=== PATIENT | female | born 1975 | race Caucasian/White ===

== ENCOUNTER → 2016-12-11 | Outpatient (CLI) | payer BC ==
--- NOTE | 2016-12-11 16:48 | CT ---
EXAMINATION TYPE: CT sinus wo con DATE OF EXAM: 12/11/2016 1:29 PM COMPARISON: NONE HISTORY: Patient complains of chronic sinus congestion and deviated septum. CT DLP: 606 mGycm CONTRAST: None The paranasal sinuses are examined in the axial plane at 2 mm thick sections. Reconstructed images i n the coronal plane were obtained. There is a retention cyst within the anterior inferior left maxillary sinus. A medial small anterior right maxillary sinus retention cyst is present. There is opacification of the anterior right ethmoi d air cell. Remaining ethmoid air cells are clear. The sphenoid sinuses are clear. The frontal sinu ses are clear. The septum is evaluated. There is septal deviation to the left. The ostiomeatal units are patent. IMPRESSIONS: 1. Retention cysts within the maxillary sinuses. 2. Left septal deviation.
== END ==
LOC: RADCTMAIN 12:48
PROVIDERS: ATTEND Otolaryngology
DX: J34.1 Cyst and mucocele of nose and nasal sinus (principal); J34.2 Deviated nasal septum
CPT/HCPCS: 70486

== ENCOUNTER 2017-01-20 08:03 | Day surgery (SDC) | payer BC ==
[2017-01-20] MEDS: OXYMETAZOLINE 0.05% NASL SPRAY 15 ML NASAL SCH ×5 (09:10→09:30)
[2017-01-20] MEDS ORDERED: ONDANSETRON 4 MG/2 ML VIAL IVP ONE ×2 (09:15→12:25)
[2017-01-20] MEDS ORDERED: DEXAMETHASONE SOD PHOSPHATE 10 MG/ML 1 ML VIAL IV ONE ×2 (09:15→12:25)
[2017-01-20] MEDS ORDERED: Pre Op ABX Message 1 EACH MISC MISCELLANE ONE (09:30)
[2017-01-20] MEDS ORDERED: LIDOCAINE 1% 20 ML VIAL (10MG/ML) FOR IV START INTRADERMA ONE (09:34)
[2017-01-20] MEDS ORDERED: LACTATED RINGERS 1,000 ML IV ONE (09:35)
[2017-01-20] MEDS ORDERED: FAMOTIDINE 20 MG/2 ML VIAL IV ONE (09:37)
[2017-01-20] MEDS ORDERED: SCOPOLAMINE 1.5MG/72HR PATCH TRANSDERM ONE ×2 (09:41→12:25)
[2017-01-20] MEDS ORDERED: LIDOCAINE 1%-EPI 1:100,000 20 ML VIAL SUBMUCOSAL ONE ×2 (09:59)
[2017-01-20] MEDS ORDERED: BACITRACIN 500 UNIT/GM OINT 28.4 GM TUBE TOPICAL ONE (10:00)
[2017-01-20] MEDS ORDERED: SUCCINYLCHOLINE CHLORIDE 100 MG/5 ML SYR IV ONE (10:02)
[2017-01-20] MEDS ORDERED: MIDAZOLAM 2 MG/2 ML VIAL ONE (10:02)
[2017-01-20] MEDS ORDERED: fentaNYL (PF) 50 MCG/ML 2 ML AMP ONE (10:02)
[2017-01-20] MEDS ORDERED: PROPOFOL 10 MG/ML 20 ML VIAL IV ONE (10:02)
[2017-01-20] MEDS ORDERED: LIDOCAINE 1% INJ 10MG/ML (20 ML MDV) ONE (10:02)
[2017-01-20] MEDS ORDERED: ePHEDrine 50 MG/ML 1 ML AMP ONE (10:02)
[2017-01-20] MEDS ORDERED: DEXAMETHASONE SOD PHOS (MDV) 100 MG/10 ML VIAL ONE (10:02)
--- NOTE | 2017-01-20 11:02 | P.OP ---
Date of Procedure: 01/20/17 Preoperative Diagnosis: Deviated nasal septum Inferior turbinate hypertrophy Chronic sinusitis Postoperative Diagnosis: Same Procedure(s) Performed: Septoplasty Outfracture and submucous resection of the inferior turbinates Bilateral endoscopic sinus surgery including bile max antrostomy with removal of tissue from the maxillary sinuses and right anterior ethmoidectomy Anesthesia: NATHAN Surgeon: Jairo Damian Estimated Blood Loss (ml): 20 Pathology: other (Nasal septal bone and cartilage and sinus contents) Condition: stable Disposition: PACU Indications for Procedure: Is a 41-year-old white female with chronic nasal airway obstruction congestion and recurrent sinus infections with computed tomography scan showing abnormalities in the maxillary sinuses and right anterior ethmoid sinus Operative Findings: Nasal septal deviation to the right, inferior turbinate hypertrophy, obstruction of ostial complexes bilaterally with small cysts in the maxillary sinuses and mild mucosal thickening in the right anterior ethmoid air cells Description of Procedure: Patient was brought in the operative suite and placed in a supine position. The patient underwent induction of general anesthesia with oral endotracheal intubation without difficulty. Patient prepped and draped in usual aseptic fashion. Orbits were in the operating field for monitoring throughout the case and computed tomography scan was on the screen for review throughout the case. 1% lidocaine with 1 100,000 epinephrine was infused submucosally both sides nasal septum as well as lateral nasal wall and anterior tips of middle turbinates bilaterally. While this was taking vasoconstrictive effect the inferior turbinates were infractured with the Crosby elevator partial submucous resection inferior turbinates was performed with Coblation of a portion of the submucosal soft tissue with the Coblator and then outfractured with Crosby elevator. A left hemitransfixion incision was made with the mucoperichondrial mucoperiosteal flap on the left elevated. Bony cartilaginous junction was disarticulated and the mucoperiosteal flap on the right was elevated. Bony nasal septal deformities were removed with Ankita forceps. An inferior cartilaginous strip was removed leaving a full 1.5 cm caudal strut. Checking intranasally this corrected the nasoseptal deformities and the hemitransfixion incision was closed running 4-0 chromic suture. Full 0 endoscopic examination was performed bilaterally. Beginning on the left middle turbinate was medialized with the Stuart elevator. Next ostium was located with a ballpoint probe and infundibulotomy was followed by uncinectomy. Maxillary ostium was enlarged at the expense of the in and posterior fontanelle. Anteriorly not to injure the lacrimal bone. A cyst was removed from the maxillary sinus using giraffe forceps. Attention was then turned to the right where the procedures were followed as they were on the left was medialization middle turbinate infundibulotomy uncinectomy and maxillary antrostomy with removal of a cyst from the maxillary sinus. Anterior ethmoidectomy also performed on the right due to the computed tomography scan abnormalities. Once this was completed xerogel was placed in the middle meatus bilaterally and moistened with saline. Bilateral Son airway splints coated bacitracin ointment were placed in nasal cavities and sutured trans-septally with a 4-0 Vicryl suture. Patient was suctioned in oral gastric fashion. Patient was allowed to emerge from general anesthesia and tolerated procedure well was extended operative suite and transferred postoperative recovery area in satisfactory condition.
[2017-01-20 11:14] VITALS: RESP 16; TEMP 97
[2017-01-20] MEDS ORDERED: fentaNYL (PF) 50 MCG/ML 2 ML AMP IV ONE (11:49)
[2017-01-20] MEDS ORDERED: ACETAMINOPHEN IV (For NPO) 1,000 MG/100 ML VIAL IVPB ONE (11:56)
[2017-01-20] MEDS ORDERED: HYDROmorphone 1 MG/ML 1 ML SYRINGE IVP PRN (12:25)
[2017-01-20] MEDS ORDERED: LIDOCAINE 1% 20 ML VIAL (10MG/ML) FOR IV START INTRADERMA PRN (12:25)
[2017-01-20] MEDS ORDERED: LACTATED RINGERS 1,000 ML IV SCH (12:25)
[2017-01-20] MEDS ORDERED: MIDAZOLAM 2 MG/2 ML VIAL IV PRN (12:25)
[2017-01-20] MEDS ORDERED: ACETAMINOPHEN TAB 500 MG TAB PO ONE (14:00)
[2017-01-20 14:09] VITALS: PULSE 70
[2017-01-20 14:48] VITALS: BP 130/64
== END 2017-01-20 15:49 | disposition home or self-care (01) ==
LOC: OR 08:03
PROVIDERS: ATTEND Otolaryngology
DX: J34.2 Deviated nasal septum (principal); J34.3 Hypertrophy of nasal turbinates; J32.9 Chronic sinusitis, unspecified; J34.1 Cyst and mucocele of nose and nasal sinus; J45.909 Unspecified asthma, uncomplicated; E07.9 Disorder of thyroid, unspecified; Z88.0 Allergy status to penicillin; Z88.2 Allergy status to sulfonamides; Z88.8 Allergy status to other drugs, medicaments and biological substances; Z91.040 Latex allergy status; Z79.899 Other long term (current) drug therapy
CPT/HCPCS: 88305; 88300; 30520; 30140; 31254; J2250; J2405; J2001; J3010; J1100; J0131; J0330; J2704

== ENCOUNTER 2017-11-22 18:12 | Observation (INO) | payer BC ==
[2017-11-22] MEDS ORDERED: KETOROLAC 30 MG/ML 1 ML VIAL IVP STA (18:46)
[2017-11-22] MEDS ORDERED: NITROGLYCERIN OINT 1 INCH/GM PACKET TOPICAL STA (18:46)
[2017-11-22] MEDS ORDERED: ASPIRIN 81 MG PO STA (18:46)
--- NOTE | 2017-11-22 18:53 | ED ---
Chest Pain HPI - General Chief Complaint: Chest Pain Stated Complaint: chest pain Time Seen by Provider: 11/22/17 18:40 Source: patient Mode of arrival: wheelchair Limitations: no limitations - History of Present Illness Initial Comments: This 42-year-old white female presents with a complaint of some left-sided sharp chest pain. She states it also feels like a pressure at times. This occurred while she was standing in the kitchen tonight. It seems to be worse with any deep inspiration and with certain movements. She denies any significant shortness of breath. She denies any previous similar incidents. She denies any leg pain but will have occasional chronic swelling but none currently. She denies any history of DVT or PE. She states that she has had a fast heart rate in the past and used to be on Tenormin for this but she denies any other Cardiologic problems in the past. There's been no previous coronary artery disease or myocardial infarction. She apparently had a stress test approximately 7 years ago which was purportedly negative. She states that it is much improved at this time. She denies any injuries. No other complaints or modifying factors. - Related Data Home Medications Medication Instructions Recorded Confirmed Albuterol Inhaler [Ventolin Hfa 2 puff INHALATION RT-Q6H PRN 01/20/17 11/22/17 Inhaler] Multivitamin [Multivitamins Adult 1 tab PO DAILY 01/20/17 11/22/17 Gummies] Allergies Allergy/AdvReac Type Severity Reaction Status Date / Time acetaminophen Allergy Rash/Hives Verified 11/22/17 19:24 [From Darvocet-N] adhesive Allergy Itching Verified 11/22/17 19:24 Latex, Natural Rubber Allergy Rash/Hives Verified 11/22/17 19:24 Penicillins Allergy Unknown Verified 11/22/17 19:24 Childhood propoxyphene Allergy Rash/Hives Verified 11/22/17 19:24 [From Darvocet-N] Sulfa (Sulfonamide Allergy Unknown Verified 11/22/17 19:24 Antibiotics) Childhood banana AdvReac Itching Verified 11/22/17 19:24 corn AdvReac Itching Verified 11/22/17 19:24 milk AdvReac Itching Verified 11/22/17 19:24 peas AdvReac Itching Verified 11/22/17 19:24 wheat AdvReac Itching Verified 11/22/17 19:24 FLUORQUINOLONES Allergy Rash/Hives Uncoded 11/22/17 18:30 NARCOTICS Allergy Nausea & Uncoded 11/22/17 18:30 Vomiting Review of Systems ROS Statement: Those systems with pertinent positive or pertinent negative responses have been documented in the HPI. ROS Other: All systems not noted in ROS Statement are negative. Past Medical History Past Medical History: Asthma Additional Past Medical History / Comment(s): IRRITABLE BOWEL, TMJ History of Any Multi-Drug Resistant Organisms: None Reported Past Surgical History: Adenoidectomy, Ear Surgery, Hysterectomy, Orthopedic Surgery, Tonsillectomy, Uterine Ablation Additional Past Surgical History / Comment(s): TUBES IN EARS CHILD, , ABDOMINAL REPAIR, HIP SURGERY, RIGHT SHOULDER SURGERY, LASIK SURGERY, DISCS IN NECK, right knee Past Anesthesia/Blood Transfusion Reactions: Previous Problems w/ Anesthesia, Motion Sickness, Postoperative Nausea & Vomiting (PONV) Past Psychological History: No Psychological Hx Reported Smoking Status: Never smoker Past Alcohol Use History: Occasional Past Drug Use History: None Reported - Past Family History Father Family Medical History: Hypertension Additional Family Medical History / Comment(s): PITUITARY TUMOR Mother Family Medical History: Diabetes Mellitus General Exam - General Exam Comments Initial Comments: GENERAL: The patient is well nourished and well hydrated. VITAL SIGNS: Heart rate, blood pressure, respiratory rate reviewed as recorded in nurse's notes. EYES: Pupils are round and reactive. Extraocular movements are intact. No conjunctival / lid redness or swelling. ENT: No external evidence of injury, swelling, or ecchymosis. Airway is patent. Throat is clear. NECK: Nontender. No swelling or evidence of injury. No subcutaneous emphysema. Trachea is midline. No thyroid mass. HEART: Regular rate and rhythm. Good peripheral pulses. LUNGS/CHEST: Breath sounds clear and equal bilaterally. No rales, rhonchi, or wheezes. No ecchymosis, subcutaneous emphysema, or tenderness. ABDOMEN: Abdomen soft without tenderness. No palpable masses or organomegaly. No peritoneal signs. No abdominal wall swelling or ecchymosis. EXTREMITIES: No extremity tenderness. Normal muscle tone and function. No thoracolumbar tenderness. No leg swelling noted. NEUROLOGIC: Sensation is grossly intact. Cranial nerve exam reveals face is symmetrical, tongue is midline, speech is clear. SKIN: No abrasions or ecchymosis is noted. No induration or masses noted. PSYCHIATRIC: Alert and oriented. Appropriate behavior and judgment. Limitations: no limitations Course Vital Signs 11/22/17 11/22/17 11/22/17 18:27 19:27 20:47 Temperature 99.2 F Pulse Rate 87 73 81 Respiratory 18 16 16 Rate Blood Pressure 101/61 109/64 100/65 O2 Sat by Pulse 100 99 99 Oximetry Chest Pain MDM - MDM The patient is seen and examined. All diagnostics are reviewed. An IV is established. She receives some aspirin as well as Nitropaste and some Toradol. The EKG shows a normal sinus rhythm at a rate of 86. There is no acute ST-T wave changes identified. The [place] intervals 150, QRS duration is 90, and the QTc intervals 449. The laboratories unremarkable except for the d-dimer is elevated. The chest x-ray did not show any acute processes. The CT angiogram of the thorax did not show any evidence of pulmonary embolism. The exact cause of her symptoms are not definitively determined. The possibility acute coronary syndrome still is possible. She is agreeable for admission. The case is discussed with Dr. Arvizu and he is agreeable for observation as well. Disposition Clinical Impression: Chest pain, Unstable angina pectoris Disposition: ADMITTED IP TO THIS HOSP Condition: Fair Referrals: Mague Correa MD [Primary Care Provider] - 1-2 days Time of Disposition: 21:37
[2017-11-22 19:10] LABS: Basophils # (A) 0.1 k/uL (0-0.2); Basophils % (A) 1 %; Eosinophils # (A) 0.2 k/uL (0-0.7); Eosinophils % (A) 2 %; HCT 43.9 % (34.0-46.0); HGB 14.3 gm/dL (11.4-16.0); Lymphocytes # (A) 2.6 k/uL (1.0-4.8); Lymphocytes % (A) 25 %; MCH 27.9 pg (25.0-35.0); MCHC 32.5 g/dL (31.0-37.0); MCV 85.8 fL (80.0-100.0); Monocytes # (A) 0.4 k/uL (0-1.0); Monocytes % (A) 4 %; Neutrophils # (A) 6.9 k/uL (1.3-7.7); Neutrophils % (A) 67 %; Platelet Count 210 k/uL (150-450); RBC 5.12 m/uL (3.80-5.40); WBC 10.2 k/uL (3.8-10.6)
[2017-11-22 19:20] LABS: ALT 26 U/L (9-52); AST 24 U/L (14-36); Albumin 4.7 g/dL (3.5-5.0); Alkaline Phosphatase 89 U/L (38-126); Anion Gap 13 mmol/L; Blood Urea Nitrogen 16 mg/dL (7-17); Calcium 9.8 mg/dL (8.4-10.2); Carbon Dioxide 26 mmol/L (22-30); Chloride 104 mmol/L (98-107); Glucose 96 mg/dL (74-99); Magnesium 1.9 mg/dL (1.6-2.3); Potassium 4.1 mmol/L (3.5-5.1); Sodium 143 mmol/L (137-145); Total Bilirubin 0.3 mg/dL (0.2-1.3)
[2017-11-22 19:27] LABS: D-Dimer 0.99 mg/L FEU (<0.60); Partial Thromboplastin Time 25.8 sec (22.0-30.0); Prothrombin Time 9.9 sec (9.0-12.0)
[2017-11-22 19:32] VITALS: RESP 16
--- NOTE | 2017-11-22 19:40 | XR ---
EXAMINATION TYPE: XR chest 2V DATE OF EXAM: 11/22/2017 COMPARISON: 01/26/2014 HISTORY: Chest pain TECHNIQUE: Frontal and lateral views of the chest are obtained. FINDINGS: Heart and mediastinum are normal. Lungs are clear. Diaphragm is normal. Bony thorax appear s normal. IMPRESSION: Normal chest. No change.
[2017-11-22 19:46] LABS: Creatine Kinase 128 U/L (30-135)
[2017-11-22] MEDS ORDERED: RX INFO: IV CONTRAST WAS GIVEN 1 EACH MISC MISCELLANE PRN (19:56)
[2017-11-22 19:59] LABS: Troponin I <0.012 ng/mL (0.000-0.034)
--- NOTE | 2017-11-22 20:50 | CT ---
EXAMINATION TYPE: CT angio chest DATE OF EXAM: 11/22/2017 8:28 PM COMPARISON: NONE HISTORY: Mid chest pain. CT DLP: 621 mGycm Automated exposure control for dose reduction was used. CONTRAST: CTA scan of the thorax is performed with IV Contrast, patient injected with 78 mL of Omnipaque 350, p ulmonary embolism protocol. There are 3-D post processed images.. FINDINGS: Lungs are clear of consolidation. There is no evidence of a pulmonary mass. Thoracic aorta appears no rmal. There is no evidence of aneurysm or dissection. Heart size is normal. There is no pericardial e ffusion. There is no pleural effusion. I see no filling defects in the pulmonary arteries. There are no hilar masses. There is no mediastina l adenopathy. The bony thorax appears intact. IMPRESSION: NEGATIVE CT ANGIOGRAM OF THE CHEST. NO EVIDENCE OF PULMONARY EMBOLISM.
[2017-11-22] MEDS ORDERED: NITROGLYCERIN SL TABS 0.4 MG TAB SUBLINGUAL PRN (21:38)
[2017-11-22] MEDS ORDERED: ALBUTEROL NEBULIZED 2.5 MG/3 ML INHALATION PRN (21:40)
[2017-11-22 23:04] VITALS: BMI 36.9
[2017-11-23] MEDS: NITROGLYCERIN OINT 1 INCH/GM PACKET TOPICAL SCH ×2 (00:11→06:06)
[2017-11-23 01:57] LABS: Creatine Kinase 91 U/L (30-135)
[2017-11-23 02:10] LABS: Creatine Kinase MB 0.7 ng/mL (0.0-2.4); Troponin I <0.012 ng/mL (0.000-0.034)
[2017-11-23 07:34] VITALS: BP 102/57; TEMP 98.6
[2017-11-23 07:41] LABS: Cholesterol 187 mg/dL (<200); HDL Cholesterol 41 mg/dL (40-60); LDL Cholesterol,Calculated 131 mg/dL (0-99); Triglycerides 76 mg/dL (<150)
[2017-11-23 07:46] LABS: Creatine Kinase 85 U/L (30-135)
[2017-11-23 08:00] LABS: Creatine Kinase MB 0.5 ng/mL (0.0-2.4); Troponin I <0.012 ng/mL (0.000-0.034)
[2017-11-23 08:20] VITALS: PULSE 83
[2017-11-23] MEDS ORDERED: ASPIRIN 325 MG TAB PO SCH (09:00)
[2017-11-23] MEDS ORDERED: ENOXAPARIN 40 MG/0.4 ML SYRINGE SQ SCH (09:00)
--- NOTE | 2017-11-23 09:16 | CONS ---
CONSULTATION Mrs. Begum is a 42-year-old female with no prior documented history of cardiac disease who presented to the emergency room with symptoms of left-sided chest discomfort. The discomfort occurred yesterday, was related to taking deep breaths and some position in her left upper extremity. It was not related to physical activity. She is reasonably active physically, has no exertional chest pain. She had no recent fever or cough. She has no history of PND, orthopnea, or peripheral edema. No recent dizziness or syncope. She has no prior cardiac history or recent cardiac workup. Her coronary risk factors are no hypertension, no diabetes. She is nonsmoker. She is not sure about her lipid profile. MEDICATION: Medications at home include multivitamin and Ventolin on a p.r.n. basis. REVIEW OF SYSTEMS: RESPIRATORY SYSTEM: She has history of bronchial asthma, but no recent wheezing or cough. GI SYSTEM: No recent GI bleeding. No peptic ulcer disease. SYSTEM: No dysuria or hematuria. NERVOUS SYSTEM: No history of stroke or seizure. PHYSICAL EXAMINATION: A 42-year-old female, alert, oriented, in no apparent distress. Blood pressure 102/50 with the heart rate in the 60s. HEAD: Normocephalic. EYES: Sclerae nonicteric. NECK: Good upstroke. No bruit. No jugular venous distention. LUNGS: Clear to auscultation. HEART: Regular rate and rhythm. S1, S2. No S3, no S4. No murmur or rub. ABDOMEN: Soft, nontender. Positive bowel sounds. No organomegaly. EXTREMITIES: No edema. Intact distal pulses. LAB DATA: Lab data revealed troponin less than 0.012 for 3 samples. BUN and creatinine 16 and 0.9. Potassium 4.1. Cholesterol 187, LDL 131. D-dimer 0.99. Hemoglobin 14.3. EKG revealed sinus mechanism, normal axis and intervals, poor R-wave progression. CT angiogram of the chest revealed no evidence of pulmonary embolism. Chest x-ray shows no infiltrate. IMPRESSION: 1. Chest discomfort, atypical for ischemic heart disease, probably noncardiac. 2. Mild elevation of her LDL. RECOMMENDATION: I will stop the nitro paste, proceed with a stress echocardiogram. If there is no evidence of any abnormalities then no further cardiac workup will be needed. Thank you for this consult. We will follow with you. MMODL / IJN: [id number] /
--- NOTE | 2017-11-23 10:00 | ECHOF ---
Referral Reason:cp MEASUREMENTS -------- HEIGHT: 175.3 cm WEIGHT: 113.4 kg BP: 114/56 RVIDd: 3.0 cm (< 3.3) IVSd: 1.1 cm (0.6 - 1.1) LVIDd: 4.5 cm (3.9 - 5.3) LVPWd: 1.0 cm (0.6 - 1.1) IVSs: 1.2 cm LVIDs: 3.6 cm LVPWs: 1.1 cm LA Diam: 2.8 cm (2.7 - 3.8) LAESV Index (A-L): 13.16 ml/m Ao Diam: 2.6 cm (2.0 - 3.7) AV Cusp: 1.8 cm (1.5 - 2.6) LA Diam: 3.3 cm (2.7 - 3.8) MV EXCURSION: 21.475 mm (> 18.000) MV EF SLOPE: 66 mm/s (70 - 150) EPSS: 0.4 cm MV E Antonio: 0.85 m/s MV DecT: 167 ms MV A Antonio: 0.77 m/s MV E/A Ratio: 1.10 FINDINGS -------- Sinus rhythm. This was a technically good study. LV size, wall thickness and systolic function are normal, with an EF greater than 55%. The left addison tricular size is normal. The right ventricle is normal in size. Normal LA size by volume 22+/-6 ml/m2. The right atrial size is normal. The aortic valve is trileaflet, and appears structurally normal. No aortic stenosis or regurgitation. The mitral valve is normal. Mild mitral regurgitation is present. The tricuspid valve appears structurally normal. Mild tricuspid regurgitation present. There is n o evidence of pulmonary hypertension. The right ventricular systolic pressure, as measured by Doppl er, is {RVSP}. Trace/mild (physiologic) pulmonic regurgitation. The aortic root size is normal. There is no pericardial effusion. CONCLUSIONS -------- 1. Sinus rhythm. 2. This was a technically good study. 3. LV size, wall thickness and systolic function are normal, with an EF greater than 55%. 4. The left ventricular size is normal. 5. Normal LA size by volume 22+/-6 ml/m2. 6. The aortic valve is trileaflet, and appears structurally normal. No aortic stenosis or regurgitati on. 7. Mild mitral regurgitation is present. 8. Mild tricuspid regurgitation present. 9. There is no evidence of pulmonary hypertension. 10. Trace/mild (physiologic) pulmonic regurgitation. 11. The aortic root size is normal. 12. There is no pericardial effusion. HARVESTING SUPERVISOR: Marga Perea RDCS
[2017-11-23] MEDS ORDERED: MULTIVITAMINS, THERA 1 EACH TAB PO SCH (12:00)
--- NOTE | 2017-11-23 12:07 | ECHOS ---
STRESS ECHOCARDIOGRAM INDICATIONS: Chest pain. BASELINE HEART RATE: 92 BASELINE BLOOD PRESSURE: 136/58 MAXIMUM HEART RATE: 167 MAXIMUM BLOOD PRESSURE: 177/59 85% MPHR: 151 100% MPHR: 178 METS: 7.9 MAXIMUM STAGE REACHED: 3 TOTAL EXERCISE TIME: 6:30 CLINICAL INFORMATION: Baseline rhythm is sinus mechanism, normal axis and intervals. Patient exercised on Edil protocol for 6 minute 30 seconds. She reached a peak rate of 167 beats per minute which is 94% maximum predicted heart rate. Peak blood pressure 177/59 mmHg. Test was terminated due to fatigue. There was no chest pain. Electrocardiograph monitoring revealed no evidence of diagnostic ischemic ST deviation. FINDINGS: Baseline echocardiogram revealed normal wall motion. At peak exercise, there was normal wall motion augmentation with no hypokinesis or dyskinesis. CONCLUSION: 1. Decrease exercise tolerance with normal electrocardiograph response to exercise. 2. Normal stress echocardiogram with no evidence of stress-induced ischemia. MMODL / IJN: [id number] /
--- NOTE | 2017-11-23 13:38 | P.HPIM ---
History of Present Illness H&P Date: 11/23/17 Chief Complaint: Chest pain HISTORY AND PHYSICAL AND DISCHARGE SUMMARY: This is a 42-year-old female patient of Dr. Correa with past medical history of mild intermittent asthma, GERD, irritable bowel, TMJ, hiatal hernia with extensive surgical history listed below. Patient states that she has been off her thyroid medication since around December 2016. She states her lab work has not been checked for this and she was previously on levothyroxine at 150 or 175 g. She does complain of her heart rate thumping slowly at times. She states that she developed chest pain yesterday on the left side of her chest that was sharp but she was standing in the kitchen. She went in and sat on the couch. She denies any radiation but prior to that she did have some left neck pain or few days which hurt with movement and swallowing. This was in the submandibular area. She denies having any popping or pressure sensation in her left ear. Patient is on a diuretic that she takes as needed for fluid retention and is not listed on her home medications. Patient came into [facility] emergency center for evaluation. She was given aspirin and Nitropaste as well as Toradol for pain control. EKG was sinus rhythm with no acute ST changes. D-dimer was elevated and she underwent a CTA of the chest that was negative for pulmonary embolism. Chest x- ray did not show any acute process. Troponins are negative on 3 draws. Triglycerides 76, cholesterol 27, LDL 131, HDL 41. Patient has been seen by Dr. Rodney for probable noncardiac chest pain. Echocardiogram reveals EF greater than 55%, mild mitral regurgitation, mild tricuspid regurgitation, no pulmonary hypertension. Nitropaste was discontinued and stress echocardiogram ordered. Stress test was negative and patient is being discharged home today in stable condition. TSH is 4.190. Discharge Medication List Albuterol Inhaler [Ventolin Hfa Inhaler] 2 puff INHALATION RT-Q6H PRN 01/20/17 [ History] Multivitamin [Multivitamins Adult Gummies] 1 tab PO DAILY 01/20/17 [History] Review of Systems All systems: negative Constitutional: Reports fatigue, Denies chills, Denies fever, Denies poor appetite Eyes: denies blurred vision, denies pain Ears, nose, mouth and throat: Denies dental pain, Denies headache, Denies hoarseness, Denies mouth pain, Denies sinus pain, Denies sore throat, Denies vertigo Cardiovascular: Reports leg edema, Reports lightheadedness, Denies chest pain, Denies decreased exercise tolerance, Denies dyspnea on exertion, Denies edema, Denies shortness of breath, Denies syncope Respiratory: Denies cough, Denies cough with sputum, Denies dyspnea, Denies excessive sputum, Denies hemoptysis, Denies home oxygen, Denies wheezing Gastrointestinal: Denies abdominal pain, Denies diarrhea, Denies nausea, Denies vomiting Genitourinary: Denies dysuria, Denies hematuria Musculoskeletal: Denies myalgias Integumentary: Denies pruritus, Denies rash Neurological: Denies numbness, Denies weakness Psychiatric: Denies anxiety, Denies depression Endocrine: Denies fatigue, Denies weight change Past Medical History Past Medical History: Asthma, GERD/Reflux, Thyroid Disorder Additional Past Medical History / Comment(s): IRRITABLE BOWEL, TMJ, HYATAL HERNIA History of Any Multi-Drug Resistant Organisms: None Reported Past Surgical History: Adenoidectomy, Ear Surgery, Hysterectomy, Orthopedic Surgery, Tonsillectomy, Uterine Ablation Additional Past Surgical History / Comment(s): TUBES IN EARS CHILD, , ABDOMINAL wound REPAIR following which required 3 surgeries initially began a muscle repair, second one included mesh and the third was flap surgery, BILATERAL HIP ARTHROSCOPIC SURGERY, RIGHT SHOULDER SURGERY, LASIK SURGERY, DISCS IN NECK, RIGHT KNEE arthroscopic, pyloric stenosis surgery, septal deviation repair. Past Anesthesia/Blood Transfusion Reactions: Previous Problems w/ Anesthesia, Motion Sickness, Postoperative Nausea & Vomiting (PONV) Past Psychological History: No Psychological Hx Reported Smoking Status: Never smoker Past Alcohol Use History: Occasional Additional Past Alcohol Use History / Comment(s): Patient is a lifelong nonsmoker, no illicit drug use, occasional alcohol use. 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 Mother Family Medical History: Diabetes Mellitus Additional Family Medical History / Comment(s): Mother is alive with history of asthma, skin cancer, hypertension, cholesterol, diabetes, gout. Sister(s) Additional Family Medical History / Comment(s): Patient has one sister with history of diabetes, hypertension, cholesterol. Patient does not have any brothers. Patient has 2 sons and 1 daughter with no major medical problems. Medications and Allergies Home Medications Medication Instructions Recorded Confirmed Type Albuterol Inhaler [Ventolin Hfa 2 puff INHALATION RT-Q6H PRN 01/20/17 11/22/17 History Inhaler] Multivitamin [Multivitamins Adult 1 tab PO DAILY 01/20/17 11/22/17 History Gummies] Allergies Allergy/AdvReac Type Severity Reaction Status Date / Time acetaminophen Allergy Rash/Hives Verified 11/22/17 19:24 [From Darwilliamcet-N] adhesive Allergy Itching Verified 11/22/17 19:24 Latex, Natural Rubber Allergy Rash/Hives Verified 11/22/17 19:24 Penicillins Allergy Unknown Verified 11/22/17 19:24 Childhood propoxyphene Allergy Rash/Hives Verified 11/22/17 19:24 [From Darvocet-N] Sulfa (Sulfonamide Allergy Unknown Verified 11/22/17 19:24 Antibiotics) Childhood banana AdvReac Itching Verified 11/22/17 19:24 corn AdvReac Itching Verified 11/22/17 19:24 milk AdvReac Itching Verified 11/22/17 19:24 peas AdvReac Itching Verified 11/22/17 19:24 wheat AdvReac Itching Verified 11/22/17 19:24 FLUORQUINOLONES Allergy Rash/Hives Uncoded 11/22/17 18:30 NARCOTICS Allergy Nausea & Uncoded 11/22/17 18:30 Vomiting Physical Exam Vitals: Vital Signs Temp Pulse Pulse Pulse Resp BP BP 11/23/17 08:00 83 67 16 11/23/17 07:45 11/23/17 07:32 98.6 F 67 16 102/57 11/23/17 03:58 16 11/23/17 03:45 98.1 F 83 16 114/56 11/23/17 00:00 16 11/22/17 22:29 98.7 F 70 16 142/74 11/22/17 21:49 73 16 102/66 11/22/17 20:47 81 16 100/65 11/22/17 19:27 73 16 109/64 11/22/17 18:27 99.2 F 87 18 101/61 Pulse Ox 11/23/17 08:00 11/23/17 07:45 95 11/23/17 07:32 95 11/23/17 03:58 11/23/17 03:45 94 L 11/23/17 00:00 11/22/17 22:29 98 11/22/17 21:49 99 11/22/17 20:47 99 11/22/17 19:27 99 11/22/17 18:27 100 Intake and Output 11/22/17 11/23/17 11/23/17 22:59 06:59 14:59 Other: Voiding Method Toilet # Voids 1 2 Weight 113.398 kg 113.398 kg Gen: This is an obese 42-year-old female. She is sitting up in bed appears to be in no acute distress. HEENT: Head is atraumatic, normocephalic. Pupils equal, round. Sclerae is anicteric. NECK: Supple. No JVD. No lymphadenopathy. No thyromegaly. LUNGS: Clear to auscultation. No wheezes or rhonchi. No intercostal retractions. HEART: Regular rate and rhythm. No murmur. ABDOMEN: Soft. Bowel sounds are present. No masses. No tenderness. EXTREMITIES: No pedal edema. No calf tenderness. Dorsalis pedis +2 bilaterally. NEUROLOGICAL: Patient is awake, alert and oriented x3. Cranial nerves 2 through 12 are grossly intact. Results CBC & Chem 7: 11/22/17 18:55 11/22/17 18:55 Labs: Abnormal Lab Results - Last 24 Hours (Table) 11/22/17 11/23/17 Range/Units 18:55 07:01 D-Dimer 0.99 H (<0.60) mg/L FEU LDL Cholesterol, Calc 131 H (0-99) mg/dL Thrombosis Risk Factor Assmnt - Choose All That Apply Each Factor Represents 1 point: Age 41-60 years Thrombosis Risk Factor Assessment Total Risk Factor Score: 1 Thrombosis Risk Factor Assessment Level: Low Risk Assessment and Plan Plan: 1. Chest pain, noncardiac. Troponins negative on 3 draws. Echocardiogram as above. Stress echo is negative. Cardiology consult appreciated. 2. Mild intermittent asthma, stable. Continue albuterol as needed. 3. History of GERD, stable. 4. History of irritable bowel syndrome stable. 5. History of hypothyroidism, off medication. TSH is within normal limits. Patient placed on the observation unit. Discharge plan: Return home Impression and plan of care have been directed as dictated by the signing physician. Judi Wolf nurse practitioner acting as scribe for signing physician.
== END 2017-11-23 14:08 | disposition home or self-care (01) ==
LOC: EC 18:12 → 3OBS 21:37
PROVIDERS: ADMIT Internal Medicine; ATTEND Internal Medicine
DX: R07.89 Other chest pain (principal); J45.20 Mild intermittent asthma, uncomplicated; E66.9 Obesity, unspecified; Z68.36 Body mass index [BMI] 36.0-36.9, adult; Z88.6 Allergy status to analgesic agent; R79.89 Other specified abnormal findings of blood chemistry; E78.00 Pure hypercholesterolemia, unspecified; Z88.1 Allergy status to other antibiotic agents; Z91.040 Latex allergy status; Z91.011 Allergy to milk products; Z88.5 Allergy status to narcotic agent; Z88.0 Allergy status to penicillin; Z88.2 Allergy status to sulfonamides; Z91.018 Allergy to other foods; Z91.048 Other nonmedicinal substance allergy status; Z83.3 Family history of diabetes mellitus; Z82.49 Family history of ischemic heart disease and other diseases of the circulatory system; Z82.5 Family history of asthma and other chronic lower respiratory diseases; Z80.8 Family history of malignant neoplasm of other organs or systems; K21.9 Gastro-esophageal reflux disease without esophagitis; K58.9 Irritable bowel syndrome, unspecified; E03.9 Hypothyroidism, unspecified
CPT/HCPCS: 36415; 71046; 71275; 80053; 80061; 82550; 82553; 83735; 84443; 84484; 85025; 85379; 85610; 85730; 93005; 93017; 93306; 93350; 94760; 96374; 99285

== ENCOUNTER → 2021-09-22 | Outpatient (CLI) | payer BC ==
--- NOTE | 2021-09-22 16:52 | XR ---
Result: Clinical History: Pain. Comparison: None available. Technique: 3 views of the left shoulder. Findings: The bone mineralization is appropriate for age. No acute fracture or dislocation is seen. The acromioclavicular and glenohumeral joints are preserve d . The humeral head is well-seated in the glenoid. The visualized lung is clear. Impression: No significant osseous abnormality.
--- NOTE | 2021-09-22 16:54 | XR ---
Result: History: Neck pain. Comparison: None available. Technique: 5 views of the cervical spine. Findings: The bone mineralization is age appropriate. The cervical spine is visualized from the craniocervical junction to the cervicothoracic junction. There is no evidence of an acute fracture or subluxation. Prior C4-C5 and C5-C6 interbody fusion renata ce seen. The vertebral body heights are preserved throughout the imaged cervical spine. The vertebra l elements are in anatomic alignment. There is normal alignment of C1 on C2 as seen on the open mout h odontoid view. There is no significant disc space narrowing. The prevertebral soft tissues are wi thin normal limits. Impression: Postsurgical changes without acute osseous abnormality or significant spondylosis.
== END | disposition home or self-care (01) ==
LOC: RADXRMAIN 16:13
PROVIDERS: ATTEND Family Medicine
DX: M25.512 Pain in left shoulder (principal); M54.2 Cervicalgia
CPT/HCPCS: 72050

== ENCOUNTER → 2022-02-24 | Outpatient (CLI) | payer BC ==
--- NOTE | 2022-02-24 19:54 | XR ---
EXAMINATION TYPE: XR wrist complete 4 views RT, XR hand complete 3 views RT DATE OF EXAM: 02/24/2022 COMPARISON: NONE HISTORY: 46-year-old female M7 9.641 pain with radicular numbness. FINDINGS: Wrist: Radiocarpal and distal radial ulnar joint as well as the midcarpal compartment appear intact. No acut e fracture, subluxation, or dislocation. Hand: No acute fracture, subluxation, dislocation. IMPRESSION: Wrist and hand without acute osseous abnormality seen.
== END | disposition home or self-care (01) ==
LOC: RADXRMAIN 13:56
PROVIDERS: ATTEND Nurse Practitioner Family
DX: M79.641 Pain in right hand (principal); R20.0 Anesthesia of skin; M25.531 Pain in right wrist

== ENCOUNTER → 2022-02-24 | Outpatient (CLI) | payer BC ==
[2022-02-24 18:42] LABS: Basophils # (A) 0.06 X 10*3/uL (0.00-0.10); Basophils % (A) 0.5 %; Eosinophils # (A) 0.16 X 10*3/uL (0.04-0.35); Eosinophils % (A) 1.5 %; HGB 13.2 g/dL (12.0-15.0); Immature Grans, Automated 0.6 %; Lymphocytes # (A) 2.95 X 10*3/uL (0.90-5.00); Lymphocytes % (A) 26.8 %; MCH 27.4 pg (27.0-32.0); MCHC 31.4 g/dL (32.0-37.0); MCV 87.1 fL (80.0-97.0); Mean Platelet Volume 11.3 fL (9.5-12.2); Monocytes # (A) 0.55 X 10*3/uL (0.20-1.00); NRBC Per 100 WBC 0 /100 WBCS (0.0-0.0); Neutrophils # (A) 7.22 X 10*3/uL (1.80-7.70); Neutrophils % (A) 65.6 %; Platelet Count 249 X 10*3/uL (140-440); RBC 4.82 X 10*6/uL (4.10-5.20); RDW 12.5 % (11.5-14.5); WBC 11.01 X 10*3/uL (4.50-10.00)
[2022-02-24 19:20] LABS: African American GFR (CKD) 120.4 (60.0-200.0); Albumin 4.3 g/dL (3.8-4.9); Albumin/Globulin Ratio 1.48 (1.60-3.17); Anion Gap 11.5 mmol/L (10.00-18.00); Blood Urea Nitrogen 16.1 mg/dL (9.0-27.0); Calcium 9.5 mg/dL (8.7-10.3); Carbon Dioxide 22.7 mmol/L (20.0-27.5); Globulin 2.9 g/dL (1.6-3.3); Non-African American GFR(CKD) 103.9 (60.0-200.0); Potassium 4.2 mmol/L (3.5-5.5); Total Bilirubin 0.2 mg/dL (0.30-1.20); Total Protein 7.3 g/dL (6.2-8.2)
[2022-02-24 19:23] LABS: Erythrocyte Sedimentation Rate 16 mm/Hr (0-20)
== END | disposition home or self-care (01) ==
LOC: LABWHC1 14:22
PROVIDERS: ATTEND Internal Medicine
DX: L50.9 Urticaria, unspecified (principal)
CPT/HCPCS: 36415; 80053; 84443; 85025; 85652; 86038; 86140; 86160

== ENCOUNTER → 2022-04-01 | Outpatient (CLI) | payer BC ==
--- NOTE | 2022-04-01 13:59 | XR ---
EXAMINATION TYPE: XR cervical spine comp DATE OF EXAM: 04/01/2022 CLINICAL HISTORY: pain COMPARISON: 09/22/2021 TECHNIQUE: Frontal, lateral, oblique, and open mouth view of the cervical spine are obtained. FINDINGS: There is no evidence of an acute fracture or subluxation. Prior C4-C5 and C5-C6 interbody fusion device seen. The vertebral body heights are preserved throughout the imaged cervical spine. Th e vertebral elements are in anatomic alignment. There is normal alignment of C1 on C2 as seen on the open mouth odontoid view. There is no significant disc space narrowing. The prevertebral soft tissues are within normal limits. Impression: Postsurgical changes without acute osseous abnormality or sign ificant spondylosis. IMPRESSION: Stable postoperative appearance and alignment.
== END | disposition home or self-care (01) ==
LOC: RADXRMAIN 13:26
PROVIDERS: ATTEND Psychiatry & Neurology Neurology
DX: M54.2 Cervicalgia (principal); Z98.890 Other specified postprocedural states
CPT/HCPCS: 72050

== ENCOUNTER → 2022-09-25 | Outpatient (CLI) | payer BC ==
--- NOTE | 2022-09-28 13:41 | MM ---
Reason for Exam: Screening (asymptomatic). Last mammogram was performed 14 year(s) and 2 month(s) ago. Patient History: Menarche at age 12. First Full-Term at age 22. Hysterectomy at age 29. Patient has history of breast feeding. Progesterone for 1 month from age 29 until age 29. Patient used Hormonal Contraceptives for 2 years. Maternal aunt had breast cancer. Risk Values: Nara 5 year model risk: 0.8%. NCI Lifetime model risk: 8.4%. Prior Study Comparison: 10/29/2004 Bilateral Diagnostic Mammogram, [facility]. 10/29/2004 Right Diagnostic Ultrasound, [facility]. 08/07/2008 Bilateral Diagnostic Mammogram, [facility]. 08/07/2008 Bilateral Diagnostic Ultrasound, [facility]. Tissue Density: The breast tissue is extremely dense which could obscure a lesion on mammography. Findings: Analyzed By CAD. Pattern appears symmetrical. Scattered benign-appearing calcification is present No suspicious groups of microcalcifications, spiculated or lobular masses, architectural distortion or other secondary signs of malignancy are mammographically apparent. Overall Assessment: Benign, BI-RAD 2 Management: Screening Mammogram of both breasts in 1 year. A negative mammogram report should not preclude additional follow up of suspicious palpable abnormalities. Patient should continue monthly self breast exam. A clinical breast exam by your physician is recommended on an annual basis and results should be correlated with mammographic findings. Electronically signed and approved by: Orville Shipley D.O. Radiologis
== END | disposition home or self-care (01) ==
LOC: RADMAMWWP 15:27
PROVIDERS: ATTEND Family Medicine
DX: Z12.31 Encounter for screening mammogram for malignant neoplasm of breast (principal); Z80.3 Family history of malignant neoplasm of breast
CPT/HCPCS: 77063; 77067

== ENCOUNTER → 2022-09-29 | Outpatient (CLI) | payer BC ==
--- NOTE | 2022-09-29 08:36 | CT ---
EXAMINATION TYPE: CT sinus wo con DATE OF EXAM: 09/29/2022 COMPARISON: 12/11/2016 HISTORY: Chronic sinusitis. CT DLP: 648.[address] of the paranasal sinuses was performed in the axial and coronal planes. Bone and soft tissue settings are submitted. The paranasal sinuses demonstrate normal aeration and development. There is complete opacification of the right frontal sinus. Left frontal sinus, sphenoid sinus and ri ght maxillary sinuses are well aerated. Mild mucosal thickening at the base of the left maxillary sin us. The osteal meatal units are patent bilaterally. The nasal septum is minimally deviated towards the left.. No bony destructive changes are seen within the field of view. IMPRESSION: Chronic paranasal sinusitis as noted above.
== END | disposition home or self-care (01) ==
LOC: RADCTMAIN 07:26
PROVIDERS: ATTEND Otolaryngology
DX: J32.9 Chronic sinusitis, unspecified (principal); J32.8 Other chronic sinusitis; R13.10 Dysphagia, unspecified
CPT/HCPCS: 70486

== ENCOUNTER → 2022-09-30 | Outpatient (CLI) | payer BC ==
--- NOTE | 2022-09-30 16:13 | FL ---
EXAMINATION TYPE: FL barium swallow DATE OF EXAM: 09/30/2022 COMPARISON: None HISTORY: Dysphagia TECHNIQUE: A layer contrast esophagram study is performed. FINDINGS: Esophagus dilates to normal caliber and has normal contour to the gastroesophageal junction. Gastroes ophageal junction opens to normal caliber. No intraluminal or extramural defects are evident. A few t ertiary contractions are within the distal esophagus. IMPRESSIONS: 1. Mild presbyesophagus.
== END | disposition home or self-care (01) ==
LOC: RADUSWWP 10:55
PROVIDERS: ATTEND Otolaryngology
DX: K22.89 Other specified disease of esophagus (principal); R13.10 Dysphagia, unspecified
CPT/HCPCS: 74220

== ENCOUNTER → 2022-11-12 | Outpatient (CLI) | payer BC ==
[2022-11-12 12:07] VITALS: BP 120/80; PULSE 105; RESP 18; TEMP 98.6
--- NOTE | 2022-11-12 15:03 | P.PAINPG ---
PQRS Measure Charge Sheet Comment: HISTORY OF PRESENT ILLNESS: 47 yr old female as a referral from Dr Porter presents today w severe and chronic GUERRERO x years (s/p CHI) secondary to occipital neuralgia and cervicogenic headache for evaluation. Pt states pain level is at 7 /10 in intensity, constant, localized in the cervical spine, throbbing in character w shooting pain towards the back of scalp towards the top of head/ eyes. Pain is provoked by lack of sleep, too much sleep, loud noises. Pain is alleviated by medications (Tyl, Ibu, Baclofen), injections in the past, topicals, PT x wks in 2021, chiropractic treatments twice weekly since Sep 2022, heat, ice rarely, repositioning, laying in dark room, hot showers and rest. PMH: Asthma, GERD, Hypothyroidism, IBS, Hiatal Hernia PSH: Addenoidectomy, Hysterectomy, BL Hip Arthroscopy, R Shoulder Surgery, Tonsillectomy, Uterine Ablation, Eustachian Tube Placement in childhood, C- section w wound repair x3, Lasik Surgery, R Knee Arthroscopy, Pyloric Stenosis Surgery, Septal Deviation Repair SH: Hx of tobacco use, Occasional ETOH, No illicit drug use. and lives w spouse & 3 children on small farm. FH: Fa- HTN/ Hyperlipidemia/ Pituitary Tumor. Mo- Asthma/ DM/ Skin CA/ Gout. Sis- DM/ HTN/ Hyperlipidemia All: See list Meds: See list REVIEW OF ORGAN SYSTEMS: CONSTITUTIONAL: No fevers or chills. No recent weight loss. NEUROLOGICAL: + numbness and tingling along the distal extremities. No seizure disorders or headaches. MUSCULOSKELETAL: + pain PSYCHIATRIC: Denies current depression or suicidal thoughts. Physical Examinations : Constitutional : Cooperative , not in acute distress . Neurologic : Cranial nerve II to XII intact. No focal neurological deficits. Psychiatric : alert & oriented x 3. Matching mood & appropriate affect. Judgment & insight intact. Musculoskeletal : Cervical Spine BL STEPHANIE TTP Motor strength in the deltoid and biceps: Normal right side. Normal Left side Motor strength biceps and the wrist extensors: Normal right side . Normal left side Motor strength in the triceps muscle: Normal right side. Normal left side Deep tendon reflexes: Normal at the biceps. Normal at Brachioradialis. Normal at triceps Vertebral body tenderness to deep palpation over Cervical facet loading test: positive bilaterally Spurling test: positive bilaterally Neck distraction test: positive bilaterally Sol sign: positive bilaterally Lumbar spine Motor strength lower extremities ,thigh and legs 5/5 Right side , 5/5 Left side Deep tendon reflexes : Normal Knee Jerk. Normal Ankle Jerk Vertebral body tenderness over Lumbar facet Loading Test: positive Right / positive Left Range of motion of the lumbar spine Flexion 30 degrees, extension 10 degrees Straight Leg Raise test: Left/ Right positive at degree Dk test: positive right / positive left. Severe tenderness over the Sacroiliac joint on the Right / Left sides Gaenslen test: positive bilaterally Seated flexion test: positive bilaterally. Sacral spine : Severe tenderness over the Sacroiliac joint: right side / left side Range of motion: Flexion of the lumbar spine <60 degrees Range of motion: Extension of the lumbar spine <20 degrees Gaenslen's Test positive Aram's Test positive Dk test: positive right side / left side Thigh Thrust Test Sacral Thrust Test Imaging: CT head without contrast from 08/14/22 reviewed Assessment/ Plan : Occipital neuralgia and Cervicogenic GUERRERO Recommendation of BL STEPHANIE injections. May need a series of injections for optimal pain relief. Risks, benefits of procedure discussed and patient verbalized understanding. Admits to aspirin or anti- coagulant use or medical history of diabetes. Protocol for discontinuation/ continuation of medications kelley procedure discussed. All questions answered. I have spent greater than 30 minutes on patient care today. Dr Judd was available by phone for the evaluation of this patient. The time was used to review the medical records including relevant urine studies and Prescription history (MAPs), review of the available imaging, evaluation and examination of the patient, coordination of care with the medical staff and if applicable referring physicians, as well as creation of the medical record - Pain Location Bilateral Head Non-Pharmacological Interventions: Chiropractic Treatment, Heat, Ice, Physical Therapy, Position/Reposition, Reduce Environmental Stimuli Pharmacological Interventions: Block, PRN Medication PQRS Narrative: Smoking Status Never smoker Home Medications: Ambulatory Orders Albuterol Inhaler [Ventolin Hfa Inhaler] 2 puff INHALATION RT-Q6H PRN 01/20/17 Multivitamin [Multivitamins Adult Gummies] 1 tab PO DAILY 01/20/17 Controlled Substance Measures - Controlled Substance Measures Is patient prescribed a controlled substance at discharge?: No
== END ==
LOC: PNWHC3 10:39
PROVIDERS: ATTEND Specialist
DX: M54.81 Occipital neuralgia (principal); Z88.0 Allergy status to penicillin; Z88.6 Allergy status to analgesic agent; Z91.048 Other nonmedicinal substance allergy status; Z91.040 Latex allergy status; Z88.5 Allergy status to narcotic agent; Z88.2 Allergy status to sulfonamides; Z91.018 Allergy to other foods; Z91.011 Allergy to milk products; Z88.8 Allergy status to other drugs, medicaments and biological substances
CPT/HCPCS: 99211

== ENCOUNTER → 2023-01-06 | Outpatient (CLI) | payer BC ==
--- NOTE | 2023-01-06 14:16 | P.PAINPG ---
PQRS Measure Charge Sheet Comment: A 47 yr old female with a history of severe and chronic neck pain secondary to cervicogenic GUERRERO and occipital neuralgia presents today for evaluation s/p BL STEPHANIE injections. Pt states she experienced 30 % pain relief x 2-3 wks s/p procedure. Pain level is provoked at 6 /10 in intensity, constant, localized in the upper cervical spine, sharp/ in character w shooting towards the top of the head. Pain is provoked by hyperextension, lateral flexion. Pain is alleviated with injections, medications, chiropractic treatments weekly currently in since in Sep 2022, repositioning and rest. Interventional pain procedures completed include BL STEPHANIE injection Patient is currently on Topamax, Backofen, Tyl, Ibu Patient denies any side effects of the medication(s), denies excessive drowsiness or sleepiness, denies suicidal ideation and reports that the current pain medication is helping to control the pain and improve activities of daily living. Patient denies any motor or sensory deficits. Patient denies any fever or night sweats, denies any change in the bowel movements or urination. Physical Examination: -Constitutional: Cooperative. Not in acute distress . - Neurologic: Cranial nerve II to XII intact. No focal neurological deficits. - Psychatric: Alert & oriented x 3. Matching mood & appropriate affect. Judgment and insight intact. - Musculoskeletal: Cervical spine: Muscle bulk/ tone/ strength in the bilateral upper extremities normal Vertebral body tenderness to palpation over Spurling test positive Distraction test positive Facet loading test positive TTP over BL C2-C3, C3-C4 facets Thoracic spine Muscle bulk / tone/ strength in the bilateral paraspinal muscles normal Vertebral body tender to palpation over Facet loading test positive TTP Lumbar spine: Motor bulk/ tone/ strength lower extremities , thigh and legs : 5/5 Deep tendon reflexes : Normal Knee Jerk. Normal Ankle Jerk . Vertebral body tenderness to palpation over Lumbar Facet Loading Test positive Straight Leg Raise: positive at 30 degrees right side/ left side Gaenslen's Test positive Sacral spine : Severe tenderness over the Sacroiliac joint: right side / left side Range of motion: Flexion of the lumbar spine <60 degrees Range of motion: Extension of the lumbar spine <20 degrees Gaenslen's Test positive R / L Kd test: positive right side / left side Thigh Thrust Test positive R / L Sacral Thrust Test positive R/ L Assessment and plan: Chronic neck pain secondary to cervicogenic GUERRERO and occipital neuralgia Recommendation of BL facet block of the medial branches C2-C3, C3-C4 #1. May need a series of injections, up until RFA, for optimal pain relief. Risks, benefits of procedure discussed and pt verbalized understanding. Admits to anticoagulant use or medical history of diabetes. Protocol for discontinuation/ continuation of medications kelley procedure discussed. All questions answered. I have spent less than 30 minutes on patient care today. Dr Judd was available by phone for the evaluation of this patient. The time was used to review the medical records including relevant urine studies and Prescription history (MAPs), review of the available imaging, evaluation and examination of the patient, coordination of care with the medical staff and if applicable referring physicians, as well as creation of the medical record PQRS Narrative: Smoking Status Never smoker Hx Alcohol Use (MH) Yes: SOCIAL Home Medications: Ambulatory Orders Acetaminophen Tab [Tylenol Tab] 500 mg PO Q4-6H PRN 11/13/22 Albuterol Inhaler [Ventolin Hfa Inhaler] 1 - 2 puff INHALATION Q6H PRN 11/13/22 Baclofen [Lioresal] 20 mg PO BID PRN 11/13/22 Cequa (Eye Drops) 1 drop BOTH EYES BID 11/13/22 Cetirizine HCl [Zyrtec] 10 mg PO DAILY 11/13/22 Fluorometholone 0.1% Ophth Deborah [Fml] 1 drops BOTH EYES DAILY 11/13/22 Fluticasone Furoate [Flonase Sensimist] 1 spray EA NOSTRIL DIRECTED 11/13/22 metroNIDAZOLE 0.75% CREAM [Metrocream 0.75%] 1 applic TOPICAL BID 12/15/22 Controlled Substance Measures - Controlled Substance Measures Is patient prescribed a controlled substance at discharge?: No
[2023-01-06 15:10] VITALS: BP 152/86; PULSE 107; RESP 18
== END ==
LOC: PNWHC3 12:58
PROVIDERS: ATTEND Specialist
DX: M54.81 Occipital neuralgia (principal); G44.86 Cervicogenic headache; G89.29 Other chronic pain; Z91.048 Other nonmedicinal substance allergy status; Z91.040 Latex allergy status; Z88.0 Allergy status to penicillin; Z91.018 Allergy to other foods; Z88.2 Allergy status to sulfonamides; Z88.6 Allergy status to analgesic agent; Z88.5 Allergy status to narcotic agent
CPT/HCPCS: 99211